=== PATIENT | female | born 1955 ===

== ENCOUNTER 2017-07-23 16:11 | Emergency (ER) | payer SELFPAY ==
[2017-07-23 16:11] VITALS: BMI 29.5
[2017-07-23 16:19] VITALS: TEMP 98.1
[2017-07-23] MEDS ORDERED: Albuterol-Ipratrop 3 mg / 0.5 (3 ml) UD ONE (19:26)
[2017-07-23] MEDS: Albuterol-Ipratrop 3 mg / 0.5 (3 ml) UD IH SCH (19:33)
--- NOTE | 2017-07-23 20:44 | C.PDOC ---
History Of Present Illness 61 year old female presents to the ED with complaints of nonproductive cough for four days, worsening with deep inspiration. Patient denies fever, chills, vomiting, diarrhea, back pain, shortness of breath, or dysuria. Time Seen by Provider: 07/23/17 19:16 Chief Complaint (Nursing): Chest Pain History Per: Patient History/Exam Limitations: no limitations Onset/Duration Of Symptoms: Days (4 days ) Current Symptoms Are (Timing): Still Present Sick Contacts (Context): None Associated Symptoms: Cough. denies: Fever, Chills, Sputum, Vomiting, Diarrhea Recent travel outside of the [place]: No Past Medical History Reviewed: Historical Data, Nursing Documentation, Vital Signs Vital Signs: Last Vital Signs Temp 98.1 F 07/23/17 16:16 Pulse 68 07/23/17 20:46 Resp 20 07/23/17 20:46 BP 154/84 H 07/23/17 20:46 Pulse Ox 96 07/24/17 03:30 - Medical History PMH: HTN - [facility] Procedures DRAINAGE OF LEFT KNEE JOINT, PERCUTANEOUS APPROACH, DIAGN (06/03/16) Family History: States: Unknown Family Hx - Social History Hx Alcohol Use: No Hx Substance Use: No - Immunization History Hx Tetanus Toxoid Vaccination: No Hx Influenza Vaccination: No Hx Pneumococcal Vaccination: No Review Of Systems Constitutional: Negative for: Fever, Chills Cardiovascular: Negative for: Chest Pain, Palpitations Respiratory: Positive for: Cough. Negative for: Shortness of Breath Gastrointestinal: Negative for: Nausea, Vomiting, Abdominal Pain, Diarrhea Genitourinary: Negative for: Dysuria, Incontinence Musculoskeletal: Negative for: Back Pain Physical Exam - Physical Exam Appears: Non-toxic, No Acute Distress Skin: Warm, Dry Head: Atraumatic, Normacephalic Eye(s): bilateral: Normal Inspection Oral Mucosa: Moist Neck: Normal ROM, Supple Chest: Symmetrical, No Deformity Cardiovascular: Rhythm Regular, No Murmur Respiratory: Wheezing (bilateral ) Gastrointestinal/Abdominal: Soft, No Tenderness, No Distention, No Guarding, No Rebound Extremity: Normal ROM, No Tenderness Neurological/Psych: Oriented x3 ED Course And Treatment ECG: Interpreted By Me, Viewed By Me ECG Rhythm: Sinus Rhythm Rate From EC O2 Sat by Pulse Oximetry: 96 (room air ) - Radiology CXR: Interpreted by Me, Viewed By Me CXR Interpretation: Yes: No Acute Disease Progress Note: EKG and CXR were ordered. Patient was given Zithromax, prednisone , and Duoneb. Medical Decision Making Medical Decision Making: On first re-exam, patient has mild improvement. Duonebs continued On second re-exam, the patient reports improvement of symptoms. Lungs are CTA, heart is RRR, abdomen is soft, non-tender and tolerating PO well. Follow up with the medical doctor/clinic within 1-2 days. return if worsened. Disposition - Disposition Referrals: [facility] [Outside] Disposition: HOME/ ROUTINE Disposition Time: 20:42 Condition: GOOD Additional Instructions: Follow up with the medical doctor/clinic within 1-2 days. return if worsened. 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 - Scribe Statement The provider has reviewed the documentation as recorded by the Scribe Mihaela Perez All medical record entries made by the Shayyibjasmin were at my direction and personally dictated by me. I have reviewed the chart and agree that the record accurately reflects my personal performance of the history, physical exam, medical decision making, and the department course for this patient. I have also personally directed, reviewed, and agree with the discharge instructions and disposition.
[2017-07-23 20:46] VITALS: BP 154/84; PULSE 68; RESP 20
[2017-07-24 03:31] VITALS: O2SAT 96
--- NOTE | 2017-07-24 08:37 | RAD ---
HISTORY: cough, fever COMPARISON: 01/22/2016 TECHNIQUE: Chest PA and lateral FINDINGS: LUNGS: Biapical pleural thickening with upper lobe granulomatous changes. Bibasilar breast and nipple shadows. No focal infiltrate or effusion. PLEURA: No significant pleural effusion identified. No pneumothorax apparent. CARDIOVASCULAR: Calcification at the aortic knob. OSSEOUS STRUCTURES: Degenerative changes in the spine with paravertebral osteophytes. VISUALIZED UPPER ABDOMEN: Normal. OTHER FINDINGS: None. IMPRESSION: No active disease.
== END 2017-07-23 20:49 | disposition home or self-care (01) ==
LOC: C.ER 16:11
DX: J45.909 Unspecified asthma, uncomplicated (principal)